=== PATIENT | male | born 1960 | race Caucasian/White ===

== ENCOUNTER → 2022-06-03 08:43 | Outpatient (CLI) | payer OTHER, SELFPAY ==
--- NOTE | ~2022-06-03 | US_ITS ---
Abdominal Sonogram: Real-time sonographic imaging of the abdomen was performed. Clinical History: Abdominal pain Findings: The liver appears normal with no evidence of mass lesion or bile duct dilatation. Main por fel[place] vein demonstrates normal direction of flow. The spleen is normal in size without evidence of foca l lesion. The gallbladder is well distended, and appears normal with no evidence of gallstone or wal l thickening. The common bile duct measures 5 mm. The visualized pancreas, aorta, and IVC are unrema rkable. The right kidney measures 11.4 cm in length and the left kidney measures 10.2 cm. There is no hydronephrosis or renal calculus. Impression: Unremarkable abdominal ultrasound. Reviewed, dictated and finalized at location . Impression: Unremarkable abdominal ultrasound.
== END ==
PROVIDERS: PCP Family Medicine Adolescent Medicine; Visit Provider Family Medicine Adolescent Medicine
DX: R10.9 Unspecified abdominal pain (principal)
CPT/HCPCS: 76700

== ENCOUNTER → 2022-06-12 08:48 | Outpatient (CLI) | payer OTHER, SELFPAY ==
--- NOTE | ~2022-06-12 | CT_ITS ---
CT of the Abdomen and Pelvis: Indication: Abdominal pain Technique: 2.5 mm axial scans were obtained through the abdomen and pelvis following intravenous adm inistration of 100 cc of Omnipaque 350. Dose reduction technique was used on this scan by utilizing a utomated exposure control and iterative reconstruction technique. The dose-length product (DLP) was 1 133.51 mGy-cm. COMPARISON: 10/03/2010 Findings: Scans through the lung bases are unremarkable. The liver, spleen, pancreas, gallbladder, adrenals and kidneys are within normal limits. No evidence of aortic aneurysm. No lymphadenopathy. No bowel obstruction or bowel wall thickening. There is no evidence to suggest acute appendicitis. Images through the pelvis were performed. Urinary bladder unremarkable. Prostate gland and seminal ve sicles are unremarkable. No ascites. Impression: No significant abnormalities seen. Reviewed, dictated and finalized at [facility]. Impression: No significant abnormalities seen.
[2022-06-12 09:08] LABS: Estimated Glomerular Filt Rate > 60
== END ==
PROVIDERS: PCP Family Medicine Adolescent Medicine; Visit Provider Family Medicine Adolescent Medicine
DX: R10.9 Unspecified abdominal pain (principal)
CPT/HCPCS: 74177; Q9967

== ENCOUNTER 2023-07-01 10:33 | Outpatient (CLI) | payer OTHER, SELFPAY ==
--- NOTE | ~2023-07-01 | XR_ITS ---
AP and oblique views of the right ribs, and AP view of the chest Clinical History: Pain Findings: No rib fracture is seen. Osseous alignment is anatomic. Lungs are clear, without focal cons olidation or pleural effusion. Cardiomediastinal contour is within normal limits. Soft tissues are un remarkable. Impression: No rib fracture is seen. Reviewed, dictated and finalized at [facility]. Impression: No rib fracture is seen.
== END 2023-07-01 10:34 ==
PROVIDERS: PCP Family Medicine Adolescent Medicine; Visit Provider Family Medicine Adolescent Medicine
DX: R07.81 Pleurodynia (principal); S29.9XXA Unspecified injury of thorax, initial encounter; X58.XXXA Exposure to other specified factors, initial encounter
CPT/HCPCS: 71101